=== PATIENT | male | born 1955 | race Caucasian/White ===

== ENCOUNTER 2018-12-28 21:17 | Emergency (ER) | payer MEDICARE ==
[~2018-12-28] VITALS: Ht 172.7 cm; Wt 68.0 kg
[2018-12-28] MEDS ORDERED: HYDROCODONE/ACETAMINOPHEN 5/325MG TABLET PO STA (22:21)
[2018-12-29] MEDS ORDERED: OXYCODONE HCL/ACETAMINOPHEN 5/325MG TABLET PO ONE (01:45)
[2018-12-29 02:28] VITALS: BP 127/72
== END 2018-12-29 02:34 | disposition home or self-care (01) ==
LOC: ER 21:17
DX: R07.89 Other chest pain (principal); I11.0 Hypertensive heart disease with heart failure; I50.9 Heart failure, unspecified; E11.9 Type 2 diabetes mellitus without complications; Z86.73 Personal history of transient ischemic attack (TIA), and cerebral infarction without residual deficits; Z95.0 Presence of cardiac pacemaker; Z98.890 Other specified postprocedural states
CPT/HCPCS: 71045; 71100; 93005; 99283